=== PATIENT | male | born 1995 | race Caucasian/White ===

== ENCOUNTER 2023-02-16 08:00 | Emergency (ER) | payer OTHER ==
[~2023-02-16] VITALS: Ht 188 cm; Wt 95.2 kg
[2023-02-16 08:09] VITALS: BP 123/78
[2023-02-16] MEDS ORDERED: IBUP800 PO (09:14)
[2023-02-16] MEDS ORDERED: Robaxin750 MG PO (09:14)
== END 2023-02-16 09:31 | disposition home or self-care (01) ==
LOC: ER 08:00
DX: M54.50 Low back pain, unspecified (principal); W13.8XXA Fall from, out of or through other building or structure, initial encounter
CPT/HCPCS: 72100; 99284-25; A9270